=== PATIENT | female | born 1985 | race Two or more races ===

== ENCOUNTER 2019-09-23 11:34 | Emergency (ER) | payer SELFPAY ==
--- NOTE | 2019-09-23 11:57 | EDM.PDOC ---
ED HPI GENERAL MEDICAL PROBLEM - General Chief Complaint: ENT Problem Stated Complaint: SINUS INFECTION Time Seen by Provider: 09/23/19 11:51 Source of Information: Reports: Patient History Limitations: Reports: No Limitations - History of Present Illness INITIAL COMMENTS - FREE TEXT/NARRATIVE: HISTORY AND PHYSICAL: History of present illness: Patient is a 34-year-old female presents to the ED with complaint of possible sinus infection. Patient states for the past week she has been having nasal congestion, pressure in her face, headaches, ear pain. She states the past couple of days she has been getting nauseous due to the drainage in her throat. She denies fevers, chills, vomiting, head injury. Review of systems: As per history of present illness and below otherwise all systems reviewed and negative. Past medical history: As per history of present illness and as reviewed below otherwise noncontributory. Surgical history: As per history of present illness and as reviewed below otherwise noncontributory. Social history: No reported history of drug or alcohol abuse. Family history: As per history of present illness and as reviewed below otherwise noncontributory. Physical exam: General: Patient sitting comfortably in no acute distress and nontoxic appearing HEENT: Nasal turbinates are edematous with purulence bilaterally. Bilateral maxillary sinus tenderness to palpation. TMs are clear bilaterally. atraumatic , normocephalic, pupils reactive, negative for conjunctival pallor or scleral icterus, mucous membranes moist, throat clear, neck supple, nontender, trachea midline. No meningeal signs. Lungs: Clear to auscultation, breath sounds equal bilaterally, chest nontender. Heart: S1S2, regular, negative for clicks, rubs, or overt murmur. Abdomen: Soft, nondistended, nontender. Negative for masses or hepatosplenomegaly. Negative for costovertebral tenderness. No rigidity, rebound , guarding. Pelvis: Stable nontender. Genitourinary: Deferred. Rectal: Deferred. Extremities: Atraumatic, negative for cords or calf pain. Neurovascular unremarkable. Neuro: Awake, alert, oriented. Cranial nerves II through XII unremarkable. Cerebellum unremarkable. Motor and sensory unremarkable throughout. Exam nonfocal. Notes: Diagnostics: None Therapeutics: None Prescriptions: Augmentin Impression: Acute sinusitis Plan: Take antibiotic as prescribed You may use Flonase and Zyrtec as discussed Follow-up with primary care provider Return to ED as needed as discussed Definitive disposition and diagnosis as appropriate pending reevaluation and review of above. sinus pain and pressure Pain Score (Numeric/FACES): 4 - Related Data Allergies Allergy/AdvReac Type Severity Reaction Status Date / Time No Known Allergies Allergy Verified 09/23/19 11:47 Home Meds: Home Meds Amoxicillin/Potassium Clav [Augmentin 875-125 Tablet] 1 each PO BID 7 Days #14 tablet 09/23/19 [Rx] Past Medical History - Infectious Disease History Infectious Disease History: Reports: Chicken Pox - Past Surgical History GI Surgical History: Reports: Cholecystectomy Social & Family History - Family History Family Medical History: Noncontributory - Tobacco Use Smoking Status *Q: Current Every Day Smoker Years of Tobacco use: 10 Packs/Tins Daily: 0.5 - Recreational Drug Use Recreational Drug Use: No ED ROS ENT - Review of Systems Review Of Systems: Comprehensive ROS is negative, except as noted in HPI. ED EXAM, ENT - Physical Exam Exam: See Below (See dictation) Course - Vital Signs Last Recorded V/S: Last Vital Signs Temp 97.6 F 09/23/19 11:44 Pulse 89 09/23/19 11:44 Resp 18 09/23/19 11:44 BP 117/72 09/23/19 11:44 Pulse Ox 98 09/23/19 11:44 Departure - Departure Time of Disposition: 11:54 Disposition: Home, Self-Care 01 Condition: Good Clinical Impression: Acute sinusitis - Discharge Information Referrals: PCP,None [Primary Care Provider] - Additional Instructions: The following information is given to patients seen in the emergency department who are being discharged to home. This information is to outline your options for follow-up care. We provide all patients seen in our emergency department with a follow-up referral. The need for follow-up, as well as the timing and circumstances, are variable depending upon the specifics of your emergency department visit. If you don't have a primary care physician on staff, we will provide you with a referral. We always advise you to contact your personal physician following an emergency department visit to inform them of the circumstance of the visit and for follow-up with them and/or the need for any referrals to a consulting specialist. The emergency department will also refer you to a specialist when appropriate. This referral assures that you have the opportunity for follow-up care with a specialist. All of these measure are taken in an effort to provide you with optimal care, which includes your follow-up. Under all circumstances we always encourage you to contact your private physician who remains a resource for coordinating your care. When calling for follow-up care, please make the office aware that this follow-up is from your recent emergency room visit. If for any reason you are refused follow-up, please contact the [facility] Emergency Department at and asked to speak to the emergency department charge nurse. [facility] [address] [place] [id number] [id number] Take antibiotic as prescribed You may use Flonase and Zyrtec as discussed Follow-up with primary care provider Return to ED as needed as discussed Sepsis Event Note - Evaluation Sepsis Screening Result: No Definite Risk - Focused Exam Vital Signs: Vital Signs Temp Pulse Resp BP Pulse Ox 09/23/19 11:44 97.6 F 89 18 117/72 98 Date Exam was Performed: 09/23/19 Time Exam was Performed: 11:51
== END 2019-09-23 12:15 | disposition home or self-care (01) ==
LOC: MW.ED 11:34
DX: J01.90 Acute sinusitis, unspecified (principal); F17.210 Nicotine dependence, cigarettes, uncomplicated
CPT/HCPCS: 99282; 99283

== ENCOUNTER 2020-08-29 10:20 | Emergency (ER) | payer OTHER ==
[2020-08-29] MEDS ORDERED: Diphtheria,Pertussis(Acell),Tetanus Vaccine 0.5 ML Syringe IM ONE (10:29)
[2020-08-29] MEDS ORDERED: Cephalexin 500 MG Cap PO ONE (11:34)
[2020-08-29] MEDS ORDERED: Acetaminophen/HYDROcodone 325-5 MG Tab PO ONE (11:37)
[2020-08-29] MEDS ORDERED: Bacitracin Oint 1 GM U/D Packet TOP ONE (11:37)
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
== END 2020-08-29 12:19 | disposition home or self-care (01) ==
LOC: MW.ED 10:20
DX: T22.112A Burn of first degree of left forearm, initial encounter (principal); T22.10XA Burn of first degree of shoulder and upper limb, except wrist and hand, unspecified site, initial encounter; Z23 Encounter for immunization; X19.XXXA Contact with other heat and hot substances, initial encounter; Y99.0 Civilian activity done for income or pay
CPT/HCPCS: 90471; 90715; 99283; A9270

== ENCOUNTER 2020-09-13 14:11 | Emergency (ER) | payer SELFPAY ==
[2020-09-13 16:15] LABS: CORONAVIRUS COVID-19 NAA NEGATIVE (NEGATIVE); INFLUENZA A NAA NEGATIVE (NEGATIVE); INFLUENZA B NAA NEGATIVE (NEGATIVE)
--- NOTE | 2020-09-13 16:20 | EDM.PDOC ---
ED HPI GENERAL MEDICAL PROBLEM - General Chief Complaint: Gastrointestinal Problem Stated Complaint: THROWING UP Time Seen by Provider: 09/13/20 14:34 Source of Information: Reports: Patient History Limitations: Reports: No Limitations - History of Present Illness INITIAL COMMENTS - FREE TEXT/NARRATIVE: HISTORY AND PHYSICAL: History of present illness: Patient is a 35-year-old female who presents to the ED today with concern of nausea and vomiting that has been ongoing since late last night. Patient states that she has not been able to keep any fluids down as she has been vomiting shortly after. Patient states that she is also had some nasal congestion that has been ongoing for the past couple days and thinks is related to her vomiting. Patient states that she is due for her menstrual cycle today but has not started and she is sexually active and not on control. Patient denies any other associated symptoms. Patient denies fever, chills, chest pain, shortness of breath, or cough. Denies headache, neck stiff ness, change in vision, syncope, or near syncope. Denies abdominal pain, diarrhea, constipation, or dysuria. Has not noted any blood in urine or stool. Review of systems: As per history of present illness and below otherwise all systems reviewed and negative. Past medical history: As per history of present illness and as reviewed below otherwise noncontributory. Surgical history: As per history of present illness and as reviewed below otherwise noncontributory. Social history: See social history for further information Family history: As per history of present illness and as reviewed below otherwise noncontributory. Physical exam: General: Patient is alert, oriented, and in no acute distress. Patient sitting comfortably on exam table. Vitals stable and reviewed by me. HEENT: Atraumatic, normocephalic, pupils equal and reactive bilaterally, negative for conjunctival pallor or scleral icterus, mucous membranes moist, TMs normal bilaterally, throat clear, neck supple, nontender, trachea midline. No drooling or trismus noted. No meningeal signs. No hot potato voice noted. Lungs: Clear to auscultation, breath sounds equal bilaterally, chest nontender. Heart: S1S2, regular rate and rhythm without overt murmur Abdomen: Soft, nondistended, nontender. Negative for masses or hepatosplenomegaly. Negative for costovertebral tenderness. Pelvis: Stable nontender. Genitourinary: Deferred. Rectal: Deferred. Skin: Intact, warm, dry. No lesions or rashes noted. Extremities: Atraumatic, negative for cords or calf pain. Neurovascular unremarkable. Neuro: Awake, alert, oriented. Cranial nerves II through XII unremarkable. Cerebellum unremarkable. Motor and sensory unremarkable throughout. Exam nonfocal. Notes: Upon arrival to the ED, patient is vitally stable, nontoxic, and well-appearing. She is not actively vomiting on exam. I did offer to establish an IV and give fluids and Zofran as well as obtain routine/basic lab work. Patient declines wanting to do this and states that she would only like to be tested for Covid. All risks versus benefits discussed with patient and expresses understanding. Covid/influenza negative. UA unremarkable. hcg negative. Upon reevaluation of patient, she remains vitally stable and comfortable throughout stay in ED. She was able to tolerate some Gatorade p.o. intake in the ED without vomiting. She has not had any episodes of vomiting today in the ED. Signs and symptoms that were prompt return to the ED thoroughly discussed with patient. Discussed importance for follow-up with primary care provider. Voices understanding and is agreeable to plan of care. Denies any further questions or concerns at this time. Diagnostics: COVID 19/Flu (basic lab work offered to patient but she declines at this time as she does not want to wait for lab work to return) Therapeutics: Offered IV fluids and Zofran but patient declines at this time Prescription: None Impression: Nausea H/O vomiting Plan: 1. Encourage small frequent sips of fluid to prevent dehydration. 2. Follow-up with your primary care provider as discussed. Return to the ED as needed and as discussed. Definitive disposition and diagnosis as appropriate pending reevaluation and review of above. Abdominal Pain Score (Numeric/FACES): 3 - Related Data Allergies Allergy/AdvReac Type Severity Reaction Status Date / Time No Known Allergies Allergy Verified 09/13/20 14:45 Home Meds: Home Meds Omeprazole 20 mg PO DAILY 09/13/20 [History] Past Medical History HEENT History: Reports: None Cardiovascular History: Reports: None Respiratory History: Reports: None Gastrointestinal History: Reports: None Genitourinary History: Reports: None [employer]OR History: Reports: None Musculoskeletal History: Reports: None Neurological History: Reports: None Psychiatric History: Reports: Anxiety, Depression Endocrine/Metabolic History: Reports: None Hematologic History: Reports: None Immunologic History: Reports: None Oncologic (Cancer) History: Reports: None Dermatologic History: Reports: None - Infectious Disease History Infectious Disease History: Reports: Chicken Pox - Past Surgical History Head Surgeries/Procedures: Reports: None GI Surgical History: Reports: Cholecystectomy Endocrine Surgical History: Reports: None Social & Family History - Family History Family Medical History: No Pertinent Family History - Tobacco Use Tobacco Use Status *Q: Current Every Day Tobacco User Years of Tobacco use: 18 Packs/Tins Daily: 0.5 - Caffeine Use Caffeine Use: Reports: Coffee, Energy Drinks, Soda, Tea - Recreational Drug Use Recreational Drug Use: No ED ROS GENERAL - Review of Systems Review Of Systems: Comprehensive ROS is negative, except as noted in HPI. ED EXAM, GENERAL - Physical Exam Exam: See Below (see dictation) Course - Vital Signs Last Recorded V/S: Last Vital Signs Temp 97.6 F 09/13/20 14:20 Pulse 79 09/13/20 16:08 Resp BP 123/73 09/13/20 16:08 Pulse Ox 99 09/13/20 16:08 - Orders/Labs/Meds Orders: Active Orders 24 hr Category Date Time Status CULTURE URINE [RM] Stat Lab 09/13/20 15:00 Received Labs: Laboratory Tests 09/13/20 09/13/20 09/13/20 Range/Units 15:00 15:00 15:32 Urine Color YELLOW Urine Appearance HAZY Urine pH 6.0 (5.0-8.0) Ur Specific Pala 1.025 (1.001-1.035) Urine Protein NEGATIVE (NEGATIVE) mg/dL Urine Glucose (UA) NEGATIVE (NEGATIVE) mg/dL Urine Ketones NEGATIVE (NEGATIVE) mg/dL Urine Occult Blood NEGATIVE (NEGATIVE) Urine Nitrite NEGATIVE (NEGATIVE) Urine Bilirubin NEGATIVE (NEGATIVE) Urine Urobilinogen 0.2 (<2.0) EU/dL Ur Leukocyte Esterase SMALL H (NEGATIVE) Urine RBC 0-1 (0-2/HPF) Urine WBC 0-1 (0-5/HPF) Ur Epithelial Cells RARE (NONE-FEW) Urine Bacteria RARE (NEGATIVE) Urine HCG, Qual NEGATIVE (NEGATIVE) Influenza Type A RNA NEGATIVE (NEGATIVE) Influenza Type B RNA NEGATIVE (NEGATIVE) SARS-CoV-2 RNA (IZABEL) NEGATIVE (NEGATIVE) Departure - Departure Time of Disposition: 16:20 Disposition: Home, Self-Care 01 Clinical Impression: Nausea, History of vomiting - Discharge Information Instructions: Nausea and Vomiting, Adult Referrals: PCP,None [Primary Care Provider] - Forms: ED Department Discharge Additional Instructions: The following information is given to patients seen in the emergency department who are being discharged to home. This information is to outline your options for follow-up care. We provide all patients seen in our emergency department with a follow-up referral. The need for follow-up, as well as the timing and circumstances, are variable depending upon the specifics of your emergency department visit. If you don't have a primary care physician on staff, we will provide you with a referral. We always advise you to contact your personal physician following an emergency department visit to inform them of the circumstance of the visit and for follow-up with them and/or the need for any referrals to a consulting specialist. The emergency department will also refer you to a specialist when appropriate. This referral assures that you have the opportunity for follow-up care with a specialist. All of these measure are taken in an effort to provide you with optimal care, which includes your follow-up. Under all circumstances we always encourage you to contact your private physician who remains a resource for coordinating your care. When calling for follow-up care, please make the office aware that this follow-up is from your recent emergency room visit. If for any reason you are refused follow-up, please contact the [facility] Emergency Department at and asked to speak to the emergency department charge nurse. [facility] [address] [place] [address] [id number] [address] [id number] 1. Encourage small frequent sips of fluid to prevent dehydration. 2. Follow-up with your primary care provider as discussed. Return to the ED as needed and as discussed. Sepsis Event Note (ED) - Evaluation Sepsis Screening Result: No Definite Risk - Focused Exam Vital Signs: Vital Signs Temp Pulse BP Pulse Ox 05/01/21 16:08 79 123/73 99 09/13/20 14:20 97.6 F 86 130/89 98 - My Orders Last 24 Hours: My Active Orders 09/13/20 15:00 CULTURE URINE [] Stat - Assessment/Plan Last 24 Hours: My Active Orders 09/13/20 15:00 CULTURE URINE [] Stat
== END 2020-09-13 16:53 | disposition home or self-care (01) ==
LOC: MW.ED 14:11
DX: R11.0 Nausea (principal); Z72.0 Tobacco use; Z20.822 Contact with and (suspected) exposure to COVID-19
CPT/HCPCS: 0240U; 81001; 81025; 87086; 99284

== ENCOUNTER 2020-11-14 21:32 | Emergency (ER) | payer SELFPAY ==
[2020-11-14] MEDS ORDERED: Ketorolac 15 MG/ML SDV IM ONE (23:43)
[2020-11-15] MEDS ORDERED: Acetaminophen/HYDROcodone 325-5 MG Tab PO ONE (01:56)
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
== END 2020-11-15 03:53 | disposition home or self-care (01) ==
LOC: MW.ED 21:32
DX: S40.022A Contusion of left upper arm, initial encounter (principal); V00.141A Fall from scooter (nonmotorized), initial encounter
CPT/HCPCS: 73030; 73060; 73080; 73090; 73110; 73130; 96372; 99283; A9270; J1885

== ENCOUNTER 2021-01-26 15:15 | Emergency (ER) | payer SELFPAY ==
--- NOTE | 2021-01-26 16:48 | EDM.PDOC ---
ED HPI GENERAL MEDICAL PROBLEM - General Chief Complaint: Back Pain or Injury Stated Complaint: PAIN ON LOWER BACK SIDE Time Seen by Provider: 01/26/21 16:05 Source of Information: Reports: Patient History Limitations: Reports: No Limitations - History of Present Illness INITIAL COMMENTS - FREE TEXT/NARRATIVE: HISTORY AND PHYSICAL: History of present illness: Patient is a 35-year-old female who presents emergency room today with concern of right flank pain that has been ongoing for 2 weeks. Patient states that 2 weeks ago, she was sitting on the toilet and she reached over and felt a popping sensation of her right ribs. Patient states that since then, she has had right flank/rib pain. Patient states that over the past several days, she also started having frequent urination and was concerned that she had a possible kidney infection. Patient denies any other symptoms or concerns. Patient denies fever, chills, chest pain, shortness of breath, or cough. Denies headache, neck stiff ness, change in vision, syncope, or near syncope. Denies nausea, vomiting, abdominal pain, diarrhea, constipation, or dysuria. Has not noted any blood in urine or stool. Patient has been eating and drinking appropriately. Review of systems: As per history of present illness and below otherwise all systems reviewed and negative. Past medical history: As per history of present illness and as reviewed below otherwise noncontributory. Surgical history: As per history of present illness and as reviewed below otherwise noncontributory. Social history: See social history for further information Family history: As per history of present illness and as reviewed below otherwise noncontributory. Physical exam: General: Patient is alert, oriented, and in no acute distress. Patient sitting comfortably on exam table. Vitals stable and reviewed by me HEENT: Atraumatic, normocephalic, pupils equal and reactive bilaterally, negative for conjunctival pallor or scleral icterus, mucous membranes moist, TMs normal bilaterally, throat clear, neck supple, nontender, trachea midline. No drooling or trismus noted. No meningeal signs. No hot potato voice noted. Lungs: Clear to auscultation, breath sounds equal bilaterally, chest nontender. Heart: S1S2, regular rate and rhythm without overt murmur Abdomen: Soft, nondistended, nontender. Negative for masses or hepatosplenome bonnie. Negative for costovertebral tenderness. Pelvis: Stable nontender. Genitourinary: Deferred. Rectal: Deferred. Skin: Intact, warm, dry. No lesions or rashes noted. Extremities: Mild pain to palpation of ribs #8 and 9 on the right axillary line area. Otherwise, atraumatic, negative for cords or calf pain. Neurovascular unremarkable. Neuro: Awake, alert, oriented. Cranial nerves II through XII unremarkable. Cerebellum unremarkable. Motor and sensory unremarkable throughout. Exam nonfocal. Notes: Patient is a 35-year-old female who presents emergency room today with concern of right flank pain x2 weeks with increase in urination frequency over the past several days. Upon arrival to the ED, patient does have some mild pain to palpation of ribs #8 9 on her right axillary line area, but negative CVA tenderness on exam. Will obtain urinalysis, and urine hCG. Urine hCG is negative. Urinalysis does show positive leukocyte Estrace with 0-3 red blood cells and 5-8 white blood cells with 1+ bacteria. Of note this is a contaminated sample with moderate epithelial cells. However, given patient's urinary frequency, will treat for urinary tract infection. Upon reevaluation of patient, she remains vitally stable and comfortable throughout stay in ED. I did offer her basic lab work to assess for possible acute Salty, but patient declines. All risks versus benefits discussed with silvestre goff and expresses understanding. Strict return precautions thoroughly discussed with patient. Discussed importance for follow-up with primary care provider. Voices understanding and is agreeable to plan of care. Denies any further questions or concerns at this time. Diagnostics: UA with culture, urine hCG Therapeutics: None Prescription: Bactrim DS Impression: Urinary tract infection Right rib pain Plan: 1. Take medication as prescribed. You can alternate ibuprofen and Tylenol as directed for pain and discomfort. 2. Follow-up with a primary care provider as discussed. Return to the ED as needed and as discussed. Definitive disposition and diagnosis as appropriate pending reevaluation and review of above. Right Flank Pain Score (Numeric/FACES): 7 - Related Data Allergies Allergy/AdvReac Type Severity Reaction Status Date / Time No Known Allergies Allergy Verified 11/14/20 23:37 Home Meds: Home Meds Omeprazole 20 mg PO DAILY 09/13/20 [History] Sulfamethoxazole/Trimethoprim [Bactrim Ds Tablet] 1 each PO BID 10 Days #20 tablet 01/26/21 [Rx] Past Medical History HEENT History: Reports: None Cardiovascular History: Reports: None Respiratory History: Reports: None Gastrointestinal History: Reports: None Genitourinary History: Reports: None RN ADMISSION History: Reports: None Musculoskeletal History: Reports: None Neurological History: Reports: None Psychiatric History: Reports: Anxiety, Depression Endocrine/Metabolic History: Reports: None Hematologic History: Reports: None Immunologic History: Reports: None Oncologic (Cancer) History: Reports: None Dermatologic History: Reports: None - Infectious Disease History Infectious Disease History: Reports: Chicken Pox - Past Surgical History Head Surgeries/Procedures: Reports: None GI Surgical History: Reports: Cholecystectomy Endocrine Surgical History: Reports: None Social & Family History - Family History Family Medical History: No Pertinent Family History - Tobacco Use Tobacco Use Status *Q: Current Every Day Tobacco User Years of Tobacco use: 11 Packs/Tins Daily: 0.5 - Caffeine Use Caffeine Use: Reports: Coffee - Recreational Drug Use Recreational Drug Use: No ED ROS GENERAL - Review of Systems Review Of Systems: Comprehensive ROS is negative, except as noted in HPI. ED EXAM, GENERAL - Physical Exam Exam: See Below (see dictation) Course - Vital Signs Last Recorded V/S: Last Vital Signs Temp 97.6 F 01/26/21 15:48 Pulse 87 01/26/21 15:48 Resp 18 01/26/21 15:48 BP 156/93 H 01/26/21 15:48 Pulse Ox 97 01/26/21 15:48 - Orders/Labs/Meds Orders: Active Orders 24 hr Category Date Time Status CULTURE URINE [MREF] Stat Lab 01/26/21 16:10 Received Labs: Laboratory Tests 01/26/21 01/26/21 Range/Units 16:10 16:10 Urine Color YELLOW Urine Appearance SLT CLOUDY Urine pH >= 9.0 H (5.0-8.0) Ur Specific [place] 1.015 (1.001-1.035) Urine Protein 30 H (NEGATIVE) mg/dL Urine Glucose (UA) NEGATIVE (NEGATIVE) mg/dL Urine Ketones TRACE H (NEGATIVE) mg/dL Urine Occult Blood NEGATIVE (NEGATIVE) Urine Nitrite NEGATIVE (NEGATIVE) Urine Bilirubin NEGATIVE (NEGATIVE) Urine Urobilinogen 1.0 (<2.0) EU/dL Ur Leukocyte Esterase MODERATE H (NEGATIVE) Urine RBC 0-3 (0-2/HPF) Urine WBC 5-8 (0-5/HPF) Ur Epithelial Cells MODERATE (NONE-FEW) Urine Bacteria 1+ H (NEGATIVE) Urine Mucus MODERATE (NONE-MOD) Urine HCG, Qual NEGATIVE (NEGATIVE) Departure - Departure Time of Disposition: 16:47 Disposition: Home, Self-Care 01 Clinical Impression: Rib pain on right side Urinary tract infection Qualifiers: Urinary tract infection type: acute cystitis Hematuria presence: without hematuria Qualified Code(s): N30.00 - Acute cystitis without hematuria - Discharge Information Prescriptions: Sulfamethoxazole/Trimethoprim [Bactrim Ds Tablet] 1 each PO BID 10 Days #20 tablet Instructions: Urinary Tract Infection, Adult, [id number] Referrals: PCP,None [Primary Care Provider] - Forms: ED Department Discharge Additional Instructions: The following information is given to patients seen in the emergency department who are being discharged to home. This information is to outline your options for follow-up care. We provide all patients seen in our emergency department with a follow-up referral. The need for follow-up, as well as the timing and circumstances, are variable depending upon the specifics of your emergency department visit. If you don't have a primary care physician on staff, we will provide you with a referral. We always advise you to contact your personal physician following an emergency department visit to inform them of the circumstance of the visit and for follow-up with them and/or the need for any referrals to a consulting specialist. The emergency department will also refer you to a specialist when appropriate. This referral assures that you have the opportunity for follow-up care with a specialist. All of these measure are taken in an effort to provide you with optimal care, which includes your follow-up. Under all circumstances we always encourage you to contact your private physician who remains a resource for coordinating your care. When calling for follow-up care, please make the office aware that this follow-up is from your recent emergency room visit. If for any reason you are refused follow-up, please contact the [facility] Emergency Department at and asked to speak to the emergency department charge nurse. [facility] [address] [place] [id number] [facility] [address] [place] [address] 1. Take medication as prescribed. You can alternate ibuprofen and Tylenol as directed for pain and discomfort. 2. Follow-up with a primary care provider as discussed. Return to the ED as needed and as discussed. Sepsis Event Note (ED) - Focused Exam Vital Signs: Vital Signs Temp Pulse Resp BP Pulse Ox 01/26/21 15:48 97.6 F 87 18 156/93 H 97 - My Orders Last 24 Hours: My Active Orders 01/26/21 16:10 CULTURE URINE [MREF] Stat - Assessment/Plan Last 24 Hours: My Active Orders 01/26/21 16:10 CULTURE URINE [MREF] Stat
== END 2021-01-26 17:00 | disposition home or self-care (01) ==
LOC: MW.ED 15:15
DX: R07.81 Pleurodynia (principal); N30.00 Acute cystitis without hematuria; Z79.899 Other long term (current) drug therapy; Z72.0 Tobacco use
CPT/HCPCS: 81001; 81025; 87086; 99284

== ENCOUNTER 2021-01-31 08:01 | Emergency (ER) | payer SELFPAY ==
[2021-01-31] MEDS ORDERED: Ketorolac 30 MG/ML SDV IM ONE (08:18)
[2021-01-31] MEDS ORDERED: Diazepam 5 MG Tab PO ONE (08:18)
--- NOTE | 2021-01-31 08:23 | EDM.PDOC ---
ED HPI GENERAL MEDICAL PROBLEM - General Chief Complaint: Back Pain or Injury Stated Complaint: BACK PAIN Time Seen by Provider: 01/31/21 08:09 - History of Present Illness INITIAL COMMENTS - FREE TEXT/NARRATIVE: 35-year-old female presenting with acute right sided back flank pain that occurred suddenly while she was vomiting this morning. Patient states that when she eats too much she often vomits in the morning. This morning she was bent over the toilet and vomiting and had sudden sharp pain in the right flank and the inferior ribs it worsens with deep breaths primarily worsens less so with twisting. There is no midline back pain no shortness of breath no anterior chest pain no abdominal pain. Patient currently on antibiotics for UTI. Patient had a similar presentation a few days ago and was told that she may have "popped a rib." Pain currently severe no alleviating factors no radiation or any other associated symptoms back Pain Score (Numeric/FACES): 7 - Related Data Allergies Allergy/AdvReac Type Severity Reaction Status Date / Time No Known Allergies Allergy Verified 01/31/21 08:17 Home Meds: Home Meds Omeprazole 20 mg PO DAILY 09/13/20 [History] Sulfamethoxazole/Trimethoprim [Bactrim Ds Tablet] 1 each PO BID 10 Days #20 tablet 01/26/21 [Rx] Past Medical History HEENT History: Reports: None Cardiovascular History: Reports: None Respiratory History: Reports: None Gastrointestinal History: Reports: None Genitourinary History: Reports: None [employer]' History: Reports: None Musculoskeletal History: Reports: None Neurological History: Reports: None Psychiatric History: Reports: Anxiety, Depression Endocrine/Metabolic History: Reports: None Hematologic History: Reports: None Immunologic History: Reports: None Oncologic (Cancer) History: Reports: None Dermatologic History: Reports: None - Infectious Disease History Infectious Disease History: Reports: Chicken Pox - Past Surgical History Head Surgeries/Procedures: Reports: None GI Surgical History: Reports: Cholecystectomy Endocrine Surgical History: Reports: None Social & Family History - Family History Family Medical History: No Pertinent Family History - Caffeine Use Caffeine Use: Reports: Coffee ED ROS GENERAL - Review of Systems Review Of Systems: See Below Free Text/Narrative/Comment: ENT: No sore throat. Neck: No neck stiffness. Respiratory: No shortness of breath. Cardiac: No chest pain. Gastrointestinal: No nausea, vomiting or abdominal pain. Musculoskeletal: Per HPI Neurologic: No headache. ED EXAM, GENERAL - Physical Exam Exam: See Below Free Text/Narrative:: General Appearance: No acute distress, appears comfortable Skin: No rash HEENT: Normocephalic/atraumatic, sclera anicteric, mucous membranes moist Neck: Normal range of motion Chest and Lungs: Bilateral breath sounds, clear to auscultation Cardiovascular: Regular rate and rhythm, no murmur Abdomen: Soft, non-tender Back: No midline tenderness step-off or deformities Musculoskeletal: Focal tenderness in the mid scapular line at the approximate level of rib 11 there is no underlying crepitus or deformity Neurologic: Awake, alert, no obvious deficits, moving all extremities Psychiatric: Appropriate, cooperative Course - Vital Signs Last Recorded V/S: Last Vital Signs Temp 96.5 F L 01/31/21 08:18 Pulse 93 01/31/21 08:18 Resp 18 01/31/21 08:18 BP 126/72 01/31/21 08:18 Pulse Ox 93 L 01/31/21 08:18 - Orders/Labs/Meds Meds: Medications Discontinued Medications Generic Name Dose Route Start Last Admin Trade Name Mariana PRN Reason Stop Dose Admin Diazepam 5 mg 01/31/21 08:18 01/31/21 08:29 Diazepam 5 Mg Tab PO 01/31/21 08:19 5 mg ONETIME ONE Administration Ketorolac Tromethamine 30 mg 01/31/21 08:18 01/31/21 08:29 Ketorolac 30 Mg/Ml Sdv IM 01/31/21 08:19 30 mg ONETIME ONE Administration Departure - Departure Time of Disposition: 09:35 Disposition: Home, Self-Care 01 Condition: Good Clinical Impression: Intercostal muscle strain - Discharge Information *PRESCRIPTION DRUG MONITORING PROGRAM REVIEWED*: Not Applicable *COPY OF PRESCRIPTION DRUG MONITORING REPORT IN PATIENT BRIAN: Not Applicable Instructions: Thoracic Strain Forms: ED Department Discharge Additional Instructions: Your chest x-ray today was normal. Your symptoms are likely due to a strain of one of your intercostal muscles which of the muscles that lie in between your ribs and help them move. Specific motions may trigger pain for the next several days but your symptoms should gradually improve with time I recommend using anti-inflammatory such as ibuprofen for the pain. If your symptoms do not improve within the next several days I encourage you to follow-up with your primary care doctor. If you do not have a primary care doctor you can follow-up with one of the clinics listed below. [facility] [address] [place] [address] [facility] [address] [place] [address] The following information is given to patients seen in the emergency department who are being discharged to home. This information is to outline your options for follow-up care. We provide all patients seen in our emergency department with a follow-up referral. The need for follow-up, as well as the timing and circumstances, are variable depending upon the specifics of your emergency department visit. If you don't have a primary care physician on staff, we will provide you with a referral. We always advise you to contact your personal physician following an emergency department visit to inform them of the circumstance of the visit and for follow-up with them and/or the need for any referrals to a consulting specialist. The emergency department will also refer you to a specialist when appropriate. This referral assures that you have the opportunity for follow-up care with a specialist. All of these measure are taken in an effort to provide you with optimal care, which includes your follow-up. Under all circumstances we always encourage you to contact your private physician who remains a resource for coordinating your care. When calling for follow-up care, please make the office aware that this follow-up is from your recent emergency room visit. If for any reason you are refused follow-up, please contact the [facility] Emergency Department at and asked to speak to the emergency department charge nurse. Sepsis Event Note (ED) - Focused Exam Vital Signs: Vital Signs Temp Pulse Resp BP Pulse Ox 01/31/21 08:18 96.5 F L 93 18 126/72 93 L - Assessment/Plan Assessment:: 35-year-old female presented with signs and symptoms that are most consistent with intercostal strain, given location and pleuritic nature of pain spontaneous pneumothorax related to vomiting needs to be considered as well and chest x-ray will be ordered to exclude this. Toradol and Valium given for symptoms patient's boyfriend will drive her home. No anterior chest pain no concern for primary cardiac process no anterior abdominal symptoms. No fever. The patient was vomiting earlier this morning she is no nausea at this time and this is not an unusual thing for her. Given patient's benign abdominal exam and prior history no further work-up for vomiting is indicated at this time. 0950: Patient symptoms have improved with the exception of very specific movements. Vital signs remain normal chest x-ray normal likely intercostal strain patient comfortable with discharge.
--- NOTE | 2021-01-31 09:19 | CR ---
INDICATION: Right chest pain. Rule out right pneumothorax. TECHNIQUE: Portable AP image of the chest. COMPARISON: None. FINDINGS: No pneumothorax evident. Lungs and pleural spaces clear. Heart, mediastinum and pulmonary vessels normal. No significant osseous abnormality. IMPRESSION: Negative chest. Dictated by Magdiel Chavarria MD @ 01/31/2021 9:18:38 AM (Electronically Signed)
== END 2021-01-31 09:59 | disposition home or self-care (01) ==
LOC: MW.ED 08:01
DX: S29.011A Strain of muscle and tendon of front wall of thorax, initial encounter (principal); Z79.899 Other long term (current) drug therapy; X50.1XXA Overexertion from prolonged static or awkward postures, initial encounter
CPT/HCPCS: 71045; 96372; 99283; A9270; J1885

== ENCOUNTER 2021-06-16 12:21 | Observation (INO) | payer SELFPAY ==
[2021-06-16] MEDS ORDERED: Potassium Chloride 10% 20 MEQ/15 ML Soln 30 ML UD Cup PO ONE (13:17)
[2021-06-16] MEDS ORDERED: Magnesium Sulfate/Water 2 GM in Premix Bag 1 BAG IV ONE (13:17)
[2021-06-16] MEDS ORDERED: Iopamidol 755 MG/ML 500 ML Multipack Bottle IVPUSH STA (13:36)
[2021-06-16] MEDS ORDERED: LORazepam 2 MG/ML SDV IVPUSH PRN (17:27)
[2021-06-16] MEDS ORDERED: Ondansetron 4 MG/2 ML SDV IVPUSH PRN (17:29)
[2021-06-16] MEDS ORDERED: Sodium Chloride 0.9% with KCl 1,000 ML IV SCH (17:30)
[2021-06-16] MEDS ORDERED: Pantoprazole 40 MG in Sodium Chloride 0.9% 10 ML IVPUSH SCH (17:30)
[2021-06-16] MEDS: Folic Acid 1 MG Tab PO SCH (18:13)
[2021-06-16] MEDS: Thiamine 200 MG/2 ML MDV IVPUSH SCH (18:25)
[2021-06-16] MEDS: cefTRIAXone 1 GM in Sodium Chloride 0.9% 50 ML IV SCH (18:27)
[2021-06-16] MEDS: Enoxaparin 40 MG/0.4 ML Syringe SUBCUT SCH (18:29)
[2021-06-16 22:16] LABS: BLOOD UREA NITROGEN,BUN 5 mg/dL (7.0-18.0); CHLORIDE,CL 90 mmol/L (98-107); GLUCOSE RANDOM 141 mg/dL (74-106); POTASSIUM,K 2.6 mmol/L (3.5-5.1); SODIUM,NA 133 mmol/L (136-145)
[2021-06-17] MEDS ORDERED: Potassium Chloride 20 MEQ Tab.ER PO ONE ×3 (01:00→11:34)
[2021-06-17] MEDS: Pantoprazole 40 MG Tab.CR PO SCH ×2 (06:24→07:57)
[2021-06-17 07:40] LABS: BLOOD UREA NITROGEN,BUN 5 mg/dL (7.0-18.0); CARBON DIOXIDE,CO2 33.9 mmol/L (21.0-32.0); CHLORIDE,CL 97 mmol/L (98-107); GLUCOSE RANDOM 121 mg/dL (74-106); POTASSIUM,K 2.9 mmol/L (3.5-5.1); SODIUM,NA 135 mmol/L (136-145)
[2021-06-17] MEDS: Thiamine 200 MG/2 ML MDV IVPUSH SCH (08:26)
[2021-06-17] MEDS: Folic Acid 1 MG Tab PO SCH (08:26)
[2021-06-17] MEDS: Phosphorus #1 250 MG Tab PO SCH ×3 (12:36→23:55)
[2021-06-17] MEDS: Enoxaparin 40 MG/0.4 ML Syringe SUBCUT SCH (17:47)
[2021-06-17] MEDS: cefTRIAXone 1 GM in Sodium Chloride 0.9% 50 ML IV SCH (17:47)
[2021-06-17 19:17] LABS: BLOOD UREA NITROGEN,BUN 7 mg/dL (7.0-18.0); CARBON DIOXIDE,CO2 29.7 mmol/L (21.0-32.0); CHLORIDE,CL 99 mmol/L (98-107); GLUCOSE RANDOM 187 mg/dL (74-106); POTASSIUM,K 3.7 mmol/L (3.5-5.1); SODIUM,NA 133 mmol/L (136-145)
[2021-06-18] MEDS: Pantoprazole 40 MG Tab.CR PO SCH (06:40)
[2021-06-18] MEDS: Phosphorus #1 250 MG Tab PO SCH ×5 (06:40→23:20)
[2021-06-18 06:56] LABS: BLOOD UREA NITROGEN,BUN 5 mg/dL (7.0-18.0); CARBON DIOXIDE,CO2 27.8 mmol/L (21.0-32.0); CHLORIDE,CL 100 mmol/L (98-107); GLUCOSE RANDOM 145 mg/dL (74-106); POTASSIUM,K 3.7 mmol/L (3.5-5.1); SODIUM,NA 134 mmol/L (136-145)
[2021-06-18] MEDS ORDERED: Magnesium Sulfate/Water 2 GM/50 ML Premix Bag IV ONE (08:56)
[2021-06-18] MEDS ORDERED: Potassium Chloride 20 MEQ Tab.ER PO ONE (09:00)
[2021-06-18] MEDS ORDERED: Phosphorus #1 250 MG Tab PO ONE (09:00)
[2021-06-18] MEDS ORDERED: Magnesium Sulfate/Water 2 GM in Premix Bag 1 BAG IV ONE (09:15)
[2021-06-18] MEDS: Folic Acid 1 MG Tab PO SCH (10:05)
[2021-06-18] MEDS: Thiamine 100 MG Tab PO SCH (10:08)
[2021-06-18 15:11] LABS: BLOOD UREA NITROGEN,BUN 4 mg/dL (7.0-18.0); CARBON DIOXIDE,CO2 28.7 mmol/L (21.0-32.0); CHLORIDE,CL 100 mmol/L (98-107); GLUCOSE RANDOM 196 mg/dL (74-106); SODIUM,NA 136 mmol/L (136-145)
[2021-06-18] MEDS: Omeprazole 20 MG Cap.CR PO SCH (16:43)
[2021-06-18] MEDS: Enoxaparin 40 MG/0.4 ML Syringe SUBCUT SCH (16:43)
[2021-06-18] MEDS: cefTRIAXone 1 GM in Sodium Chloride 0.9% 50 ML IV SCH (16:47)
[2021-06-18] MEDS ORDERED: Acetaminophen 325 MG Tab PO PRN (23:04)
[2021-06-19 06:44] LABS: BLOOD UREA NITROGEN,BUN 3 mg/dL (7.0-18.0); CARBON DIOXIDE,CO2 27.6 mmol/L (21.0-32.0); CHLORIDE,CL 100 mmol/L (98-107); GLUCOSE RANDOM 132 mg/dL (74-106); POTASSIUM,K 4.3 mmol/L (3.5-5.1); SODIUM,NA 135 mmol/L (136-145)
[2021-06-19] MEDS: Pantoprazole 40 MG Tab.CR PO SCH (06:50)
[2021-06-19] MEDS: Omeprazole 20 MG Cap.CR PO SCH (06:50)
[2021-06-19] MEDS: Phosphorus #1 250 MG Tab PO SCH ×2 (06:50→11:47)
[2021-06-19] MEDS: Folic Acid 1 MG Tab PO SCH (08:46)
[2021-06-19] MEDS: Thiamine 100 MG Tab PO SCH (08:46)
== END 2021-06-19 13:45 | disposition home or self-care (01) ==
LOC: MW.ED 12:21 → MW.MS 16:45
PROVIDERS: ADMIT Internal Medicine; ATTEND Internal Medicine
DX: A08.4 Viral intestinal infection, unspecified (principal); K29.20 Alcoholic gastritis without bleeding; K70.10 Alcoholic hepatitis without ascites; F10.139 Alcohol abuse with withdrawal, unspecified; U07.1 COVID-19; N39.0 Urinary tract infection, site not specified; E87.6 Hypokalemia; E83.39 Other disorders of phosphorus metabolism; E87.1 Hypo-osmolality and hyponatremia; E87.3 Alkalosis; F41.9 Anxiety disorder, unspecified; F32.A Depression, unspecified; Z79.01 Long term (current) use of anticoagulants; Z79.899 Other long term (current) drug therapy; Z20.822 Contact with and (suspected) exposure to COVID-19
CPT/HCPCS: 36415; 74177; 74181; 76705; 80048; 80053; 82550; 82947; 83036; 83735; 84100; 85025; 85610; 87086; 87324; 87493; 87635; 96365; 96366; 96367; 96372; 96375; 96376; 99285; A9270; C9113; G0378; J0696; J1650; J3411; J3475; J3480; Q9967; U0002

== ENCOUNTER 2021-08-18 20:24 | Emergency (ER) | payer SELFPAY ==
[2021-08-18] MEDS ORDERED: Phenazopyridine 200 MG Tab PO ONE (20:53)
[2021-08-18] MEDS ORDERED: cefTRIAXone 1 GM Vial IM ONE (20:53)
[2021-08-18] MEDS ORDERED: Lidocaine 1% PF 2 ML SDV INJECT ONE (20:54)
== END 2021-08-18 22:08 | disposition home or self-care (01) ==
LOC: MW.ED 20:24
DX: N12 Tubulo-interstitial nephritis, not specified as acute or chronic (principal); K21.9 Gastro-esophageal reflux disease without esophagitis; Z79.899 Other long term (current) drug therapy
CPT/HCPCS: 81001; 81025; 87086; 96372; 99283; A9270; J0696

== ENCOUNTER 2021-09-30 05:11 | Emergency (ER) | payer SELFPAY ==
[2021-09-30] MEDS ORDERED: Amiodarone 150 MG/3 ML SDV ONE (05:15)
[2021-09-30] MEDS ORDERED: Sodium Bicarbonate 8.4% 50 MEQ/50 ML Syringe ONE (05:15)
[2021-09-30] MEDS ORDERED: EPINEPHrine 1:10,000 1 MG/10 ML Syringe ONE (05:15)
[2021-09-30] MEDS ORDERED: Calcium Chloride 10% 1 GM/10 ML Syringe ONE (05:15)
== END 2021-09-30 07:04 | disposition expired ==
LOC: MW.ED 05:11
DX: I46.9 Cardiac arrest, cause unspecified (principal); K21.9 Gastro-esophageal reflux disease without esophagitis; Z79.899 Other long term (current) drug therapy
CPT/HCPCS: 31500; 43752; 92950; 96365; 96375; 96376; 99285; J0171; J0282; 99284